=== PATIENT | female | born 1945 | race Caucasian/White ===

== ENCOUNTER 2018-01-14 11:00 | Outpatient (RCR) | payer MEDICARE, SELFPAY | END 2018-01-14 11:01 | disposition home or self-care (01) | LOC: PT 11:00 | PROVIDERS: Family Provider Family Medicine Geriatric Medicine; PCP Family Medicine Geriatric Medicine; Visit Provider Physician Assistant | DX: M25.551 Pain in right hip (principal); S76.311A Strain of muscle, fascia and tendon of the posterior muscle group at thigh level, right thigh, initial encounter | CPT/HCPCS: 97010; 97014; 97110; 97163; G0283 ==

== ENCOUNTER 2020-01-18 11:00 | Outpatient (RCR) | payer MEDICARE, SELFPAY | END 2020-01-18 11:05 | disposition home or self-care (01) | LOC: PT 11:00 | PROVIDERS: PCP Family Medicine Geriatric Medicine; Visit Provider Orthopaedic Surgery | DX: M25.561 Pain in right knee (principal); Z96.651 Presence of right artificial knee joint | CPT/HCPCS: 97010; 97014; 97033; 97035; 97110; 97163; G0283 ==

== ENCOUNTER → 2020-08-21 09:19 | Outpatient (POV) | payer MEDICARE, SELFPAY ==
[2020-08-21 09:24] VITALS: BP 148/64; PULSE 73; RESP 18; TEMP 36.8; O2SAT 98; BMI 27.3
--- NOTE | 2020-08-21 11:42 | HMH.PMCON ---
Assessment and Plan (1) Facet arthropathy, lumbar Status: Acute Category: Medical Code(s): M47.816 - Spondylosis without myelopathy or radiculopathy, lumbar region (2) Degenerative disc disease Status: Acute Category: Medical - Assessment and plan all Dx Assessment and Plan for all problems:: We will set up the patient for medial branch blocks/facet joint injection L3-L4 L4-L5 bilaterally. Given her symptomology I do believe this would benefit her. She may be a neurotomy candidate. She is not on any anticoagulation therapy. We will follow up with her afterwards reassess her symptoms at that time we discussed the diagnostic nature of these injections she understands. She has been instructed to call the office if she has any issues prior to her next appointment. Dr. Wilson has reviewed this note and agrees with this plan of care. This note was dictated using voice recognition software and may contain errors or omissions HPI - Data of Consult Consult date: 08/21/20 Requesting Physician: Shama Christy APRN Primary Care Provider: Celsa Tellez - Consult Narrative Reason for consult: Back pain History of present illness: Ms. Murray is a 75 year old female who presents today for consultation in regards to her low back pain. Patient has had pain for several years. She has had surgery in the past. Patient has tried and failed physical therapy, medications. Patient's pain is very focal in nature she is extremely tender over her lumbar facet joints. She has difficulty with twisting motions. Patient has positive facet loading lumbar spine. Patient rates her pain today a 5 out of 10. Patient has not had any injective therapy. She has failed gabapentin, Cymbalta, tramadol for over 6 weeks. She is interested in injective therapy. CC: Shama Christy APRN [facility] History I have reviewed the patient's past medical history: Yes Medical History: Reports:: Hyperlipidemia, Hypertension Denies:: Cancer, Diabetes Mellitus Type 1, Diabetes Mellitus Type 2, MRSA *Have you ever received a pneumonia vaccine?: Yes *Have you received a flu vaccine this season?: Yes Other Medical History: Reports: Arthritis Laterality Cases: Left: Arthroscopy Knee, Total Knee Replacement Other Surgeries: Yes: Cholecystectomy, Hysterectomy-Total, Tubal Ligation Amputation: No Fractures: No - *Social History Smoking Status: Never smoker Alcohol Intake: never *Occupational Status:: other Housing: house Household Members: other *Travel in the last 8 weeks: None Family Hx:: Unable to obtain Review of Systems - Review of Systems ROS General: no recent weight change, no fever, no sleep disturbances Respiratory: no cough, no shortness of air, no recurring pulmonary infections Cardiovascular/Peripheral Vascular: No chest pain, No palpitations, no edema, no shortness of breath. Gastrointestinal: no new onset incontinence, normal bowel movements reported Genitourinary: no new onset incontinence Musculoskeletal: Back pain Psychiatric: normal mood/ affect Neurological: [denies new onset weakness in extremities], [denies new onset balance issues] Meds Allergies Allergy/AdvReac Type Severity Reaction Status Date / Time No Known Allergies Allergy Unverified 03/25/17 14:09 Objective Vital signs: Temp Pulse Resp BP Pulse Ox 98.3 F 73 18 148/64 H 98 08/21/20 09:24 08/21/20 09:24 08/21/20 09:24 08/21/20 09:24 08/21/20 09:24 Narrative: Physical Exam General: Alert and oriented x3, no acute distress, pleasant and cooperative, [on room air] Lungs: Resps E/U, Symmetrical chest expansion, Eyes: PERRL Musculoskeletal: Flexion and extension of lumbar spine somewhat guarded secondary to pain, deep tendon reflexes normal, strength in upper and lower extremities [5/5], slightly antalgic gait noted Neurological: speech clear, coordinator of placement equal, no gross sensory deficits Opioid Risk Tool - Opio
== END ==
PROVIDERS: PCP Physician Assistant; Visit Provider Clinical Nurse Specialist Family Health
DX: M47.816 Spondylosis without myelopathy or radiculopathy, lumbar region (principal)
CPT/HCPCS: 99202; G0463

== ENCOUNTER 2020-09-01 09:37 | Day surgery (SDC) | payer MEDICARE, SELFPAY ==
[2020-09-01 09:55] VITALS: BP 159/49; PULSE 64; RESP 20; TEMP 36; O2SAT 98; BMI 28.2
[2020-09-01 11:27] VITALS: BP 123/75; PULSE 61; RESP 18; O2SAT 98
[2020-09-01 11:29] VITALS: BP 123/75; PULSE 60; RESP 18; O2SAT 98
[2020-09-01 11:45] VITALS: BP 152/75; PULSE 61; RESP 20; O2SAT 98
--- NOTE | 2020-09-01 12:24 | HMH.PMPROC ---
- Procedure Date: 09/01/20 Time: 12:34 Anesthesiologist:: Rosa Carroll MD Complications:: None Pre-procedure Diagnosis:: Lumbar facet arthropathy Post-procedure Diagnosis:: Same Indications for Procedure:: Patient is a 75-year-old female with lumbar facet arthropathy resulting in significant low back pain. She has had spine surgery in the past. She has tried and failed physical therapy as well as medications. Her pain is localized and very tender over her lower lumbar facet joints. She reports pain with twisting and bending. On exam she had positive facet loading of the lumbar spine. She has not had any previous injection therapy and the plan is for her to undergo today lumbar facet injections of L3-L4 and L4-L5. Procedure Details:: Lumbar medial branch block Informed consent was obtained and the risks and benefits of the procedure was explained to the patient. The back was prepped using ChloraPrep. The skin and subcutaneous tissues were anesthetized using lidocaine. I placed 22-gauge spinal needles into the facet joint/medial branches of L3-L4, L4-L5 bilaterally. Needle placement was confirmed with dye. After this we injected 3 mL bupivacaine 0.25% and Depo-Medrol 13 mg into each facet joint/medial branch of L3-L4, L5 and L5-S1 bilaterally. We used a total of 80 mg Depo-Medrol for all 2 levels bilaterally. The patient tolerated the procedure well with no complications. Plan and Disposition:: Patient was discharged home in stable condition. Plan is to follow-up in 2 weeks for reevaluation.
== END 2020-09-01 11:45 | disposition home or self-care (01) ==
LOC: SC.PAINP 09:40
PROVIDERS: PCP Physician Assistant; Visit Provider Anesthesiology Pain Medicine
DX: M47.816 Spondylosis without myelopathy or radiculopathy, lumbar region (principal); I10 Essential (primary) hypertension; E78.5 Hyperlipidemia, unspecified; M19.90 Unspecified osteoarthritis, unspecified site; K21.9 Gastro-esophageal reflux disease without esophagitis; M85.80 Other specified disorders of bone density and structure, unspecified site; G25.81 Restless legs syndrome; F41.9 Anxiety disorder, unspecified; F32.9 Major depressive disorder, single episode, unspecified; Z85.820 Personal history of malignant melanoma of skin
CPT/HCPCS: 64493; 64494; J1030; Q9966

== ENCOUNTER → 2020-09-25 08:47 | Outpatient (POV) | payer MEDICARE, SELFPAY ==
[2020-09-25 08:58] VITALS: BP 139/83; PULSE 66; RESP 18; O2SAT 97; BMI 28.2
--- NOTE | 2020-09-25 09:13 | HMH.PAINSOAP ---
[facility] Pain Management SOAP Note Subjective:: Patient is a 75-year-old white female who presents today for follow-up. Patient recently underwent medial branch block/facet joint injections at L3-L4 L4-L5. She has been treated for degenerative disc disease lumbar spine with lumbar facet arthropathy and lumbar spondylosis. Patient says that she got approximately 80% relief for a day and a half. Patient says her pain is worse with turning and twisting. She says that leaning over to wash dishes makes her pain severe. The pain does radiate up underneath her shoulder blades. She does have facet loading of her lumbar spine. She would like to proceed with a repeat medial branch block/facet joint injection. She has tried and failed conservative therapies of physical therapy for greater than 6 weeks and continued home stretching. She is also tried anti-inflammatories in the past with little to no relief. She continues to use ice and heat therapies. Review of Systems General: No recent weight changes, no fever, no sleep disturbances Respiratory: No cough, no shortness of air, no recurring pulmonary infections Cardiovascular/peripheral vascular: No chest pain, no palpitations, no edema, no shortness of breath Gastrointestinal: No new onset incontinence, normal bowel movements reported Genitourinary: No new onset incontinence Musculoskeletal: Low back pain worse with turning and twisting at waist, worse with leaning forward to do dishes, pain radiating under shoulder blades Psychiatric: Normal mood/affect Neurological: [Denies weakness in extremities], [denies balance issues] Objective:: Physical exam General: Alert and oriented x3, no acute distress, pleasant and cooperative, [on room air] Lungs: Respirations even and unlabored, symmetrical chest expansion Eyes: PERRL Musculoskeletal: Flexion and extension of [] lumbar spine somewhat guarded secondary to pain, deep tendon reflexes normal, strength in upper and lower extremities [5/5], [abnormal gait noted], positive Kemps test Neurological: Speech clear, exhibits curator equal, no gross sensory deficit Assessment:: Degenerative disc disease lumbar spine with lumbar facet arthropathy and lumbar spondylosis Plan:: We will schedule patient for repeat medial branch blocks/facet joint injections L3-L4 L4-L5 bilaterally. She is not on anticoagulation therapy. This is the patient's second round of diagnostic injections. she and I did discuss that if she continues to get relief with the injections at her next visit, we will proceed with RFA. She understands that the medial branch block/facet joint injections are diagnostic only. She does understand and would like to proceed. She is not on any anticoagulation therapy. She will continue with home stretching and anti-inflammatories as well as ice and heat therapies. Risks and benefits of the procedure have been explained to the patient. Patient would like to proceed with the procedure. Possible side effects of corticosteroids have been discussed with the patient. Patient has been instructed to contact the clinic with any concerns before the next appointment. Dr. Wilson has reviewed this note and agrees with this plan of care. This note was dictated using voice recognition software and make contain errors or omissions. [facility] History I have reviewed the patient's past medical history: Yes Medical History: Reports:: Cancer (melanoma), Hyperlipidemia, Hypertension Denies:: Diabetes Mellitus Type 1, Diabetes Mellitus Type 2, MRSA, Seizures *Have you ever received a pneumonia vaccine?: Yes *Have you received a flu vaccine this season?: Yes Other Medical History: Reports: Arthritis. Denies: Blood Transfusion Reaction Laterality Cases: Left: Arthroscopy Knee Other Surgeries: Yes: Cholecystectomy, Hysterectomy-Total, Tubal Ligation Amputation: No Fractures: No - *Social History Smoking Status: Never smoker Alcohol Intake: never *Occupational Status::
== END ==
PROVIDERS: PCP Physician Assistant; Visit Provider Clinical Nurse Specialist Family Health
DX: M51.36 Other intervertebral disc degeneration, lumbar region (principal); M54.06 Panniculitis affecting regions of neck and back, lumbar region; M47.816 Spondylosis without myelopathy or radiculopathy, lumbar region
CPT/HCPCS: 99212; G0463

== ENCOUNTER 2020-10-06 09:28 | Day surgery (SDC) | payer MEDICARE, SELFPAY ==
[2020-10-06 09:32] VITALS: BP 130/53; PULSE 71; RESP 18; TEMP 36.7; O2SAT 98; BMI 28.2
[2020-10-06 09:54] VITALS: BP 142/53; PULSE 77; RESP 18; O2SAT 95
[2020-10-06 09:56] VITALS: BP 122/54; PULSE 70; RESP 18; O2SAT 99
[2020-10-06 10:19] VITALS: BP 121/53; PULSE 61; RESP 20; O2SAT 98
--- NOTE | 2020-10-06 10:19 | HMH.PMPROC ---
- Procedure Date: 10/06/20 Time: 10:19 Anesthesiologist:: Rosa Carroll MD Complications:: None Pre-procedure Diagnosis:: Degenerative disc disease of the lumbar spine, lumbar spondylosis, lumbar facet arthropathy Post-procedure Diagnosis:: same Indications for Procedure:: Patient is a very pleasant 75-year-old white female who presents today with chronic low back pain related to the above diagnosis. She denies any pain going down her legs at this time. She is trialed and failed conservative treatment including oral pain medication and home stretching program. She has previously undergone a previous diagnostic lumbar facet joint/medial branch block at L3-L4 bilaterally and notes about 80% pain relief for 1-1/2 days. She reports the pain is primarily worse with bending and twisting. The plan for today is for the patient to undergo diagnostic lumbar facet joint/medial branch block injections at L3-L4 and L4-L5 bilaterally #2. Procedure Details:: Lumbar medial branch block Informed consent was obtained and the risks and benefits of the procedure was explained to the patient. The back was prepped using ChloraPrep. The skin and subcutaneous tissues were anesthetized using lidocaine. I placed 22-gauge spinal needles into the facet joint/medial branches of L3-L4, L4-L5 bilaterally. Needle placement was confirmed with dye. After this we injected 3 mL bupivacaine 0.25% and Depo-Medrol 40 mg into each facet joint/medial branch of L3-L4, L4-5 bilaterally. We used a total of 80 mg Depo-Medrol for all 3 levels bilaterally. The patient tolerated the procedure well with no complications. Plan and Disposition:: Follow-up with this patient in 2 weeks and will reevaluate pain symptoms at that time. Should the patient experience significant but only short-term pain relief again we will proceed with therapeutic lumbar RFA injections.
== END 2020-10-06 10:21 | disposition home or self-care (01) ==
PROVIDERS: PCP Physician Assistant; Visit Provider Anesthesiology Pain Medicine
DX: M51.36 Other intervertebral disc degeneration, lumbar region (principal); M54.06 Panniculitis affecting regions of neck and back, lumbar region; M47.816 Spondylosis without myelopathy or radiculopathy, lumbar region; E78.5 Hyperlipidemia, unspecified; I10 Essential (primary) hypertension; M19.90 Unspecified osteoarthritis, unspecified site; Z79.899 Other long term (current) drug therapy
CPT/HCPCS: 64493; 64494; J1030; Q9966

== ENCOUNTER → 2020-10-26 10:50 | Outpatient (POV) | payer MEDICARE, SELFPAY ==
[2020-10-26 11:06] VITALS: BP 134/62; PULSE 70; RESP 18; O2SAT 98; BMI 27.3
--- NOTE | 2020-10-26 13:46 | HMH.PAINSOAP ---
[facility] Pain Management SOAP Note Subjective:: Patient is a 75-year-old white female who presents today for follow-up after a medial branch block/facet joint injection at L3-L4 L4-L5 bilaterally #2 diagnostic. Patient is being treated for degenerative disc disease lumbar spine with lumbar spondylosis and lumbar facet arthropathy. She reports that she got 1 day of relief at 80%. Her pain has returned. With sitting, her pain is a 2 out of 10, with standing and leaning forward or turning and twisting at waist her pain is a 7 or an 8 out of 10. She says that the pain is gradually worsening. She would like to proceed with the RFA. She is not on any anticoagulation therapy. She continues with home stretching and anti-inflammatories. She does say that she has tried physical therapy for greater than 6 weeks in the past with no significant relief. Review of Systems General: No recent weight changes, no fever, no sleep disturbances Respiratory: No cough, no shortness of air, no recurring pulmonary infections Cardiovascular/peripheral vascular: No chest pain, no palpitations, no edema, no shortness of breath Gastrointestinal: No new onset incontinence, normal bowel movements reported Genitourinary: No new onset incontinence Musculoskeletal: Low back pain worse with bending forward and turning twisting waist Psychiatric: Normal mood/affect Neurological: [Denies weakness in extremities], [denies balance issues] Objective:: Physical exam General: Alert and oriented x3, no acute distress, pleasant and cooperative, [on room air] Lungs: Respirations even and unlabored, symmetrical chest expansion Eyes: PERRL Musculoskeletal: Flexion and extension of [] lumbar spine somewhat guarded secondary to pain, deep tendon reflexes normal, strength in upper and lower extremities [5/5], [abnormal gait noted], positive Kemps test Neurological: Speech clear, public area supervisor equal, no gross sensory deficit Assessment:: Degenerative disc disease lumbar spine with lumbar facet arthropathy and lumbar spondylosis Plan:: We will schedule the patient for RFA L4 L4-L5 bilaterally. She is not on any anticoagulation therapy. We will follow up with her afterwards for reevaluation of symptoms. She did get up to 80% relief for a day after her #2 diagnostic medial branch block. She has been instructed to contact clinic if she has any concerns for next morning. Risks and benefits of the procedure have been explained to the patient. Patient would like to proceed with the procedure. Possible side effects of corticosteroids have been discussed with the patient. Patient has been instructed to contact the clinic with any concerns before the next appointment. Dr. Wilson has reviewed this note and agrees with this plan of care. This note was dictated using voice recognition software and make contain errors or omissions. [facility] History I have reviewed the patient's past medical history: Yes Medical History: Reports:: Hyperlipidemia, Hypertension Denies:: Cancer, Diabetes Mellitus Type 1, Diabetes Mellitus Type 2, MRSA, Seizures *Have you ever received a pneumonia vaccine?: Yes *Have you received a flu vaccine this season?: Yes Other Medical History: Reports: Arthritis. Denies: Blood Transfusion Reaction Laterality Cases: Left: Arthroscopy Knee Other Surgeries: Yes: Cardiac Catheterization, Cholecystectomy, Hysterectomy-Total, Tubal Ligation Amputation: No Fractures: No - *Social History Smoking Status: Never smoker Alcohol Intake: never *Occupational Status:: unemployed Housing: house Household Members: other *Travel in the last 8 weeks: None Family Hx:: Unable to obtain
== END ==
PROVIDERS: PCP Physician Assistant; Visit Provider Clinical Nurse Specialist Family Health
DX: M51.36 Other intervertebral disc degeneration, lumbar region (principal); M54.06 Panniculitis affecting regions of neck and back, lumbar region; M47.816 Spondylosis without myelopathy or radiculopathy, lumbar region
CPT/HCPCS: 99212; G0463

== ENCOUNTER 2020-11-03 13:42 | Day surgery (SDC) | payer MEDICARE, SELFPAY ==
[2020-11-03 14:15] VITALS: BP 137/38; PULSE 76; RESP 20; TEMP 36.5; O2SAT 97; BMI 28.2
[2020-11-03 15:01] VITALS: BP 118/52; PULSE 74; RESP 18; O2SAT 99
[2020-11-03 15:02] VITALS: BP 112/48; PULSE 77; RESP 18; O2SAT 99
--- NOTE | 2020-11-03 15:06 | HMH.PMPROC ---
- Procedure Date: 11/03/20 Time: 15:06 Anesthesiologist:: Rosa Carroll MD Complications:: None Pre-procedure Diagnosis:: Degenerative disc disease of the lumbar spine, lumbar facet arthropathy, lumbar spondylosis Post-procedure Diagnosis:: Same Indications for Procedure:: Patient is a very pleasant 75-year-old white female who presents today with chronic low back pain due to the above diagnosis. She has trialed and failed conservative treatment including oral pain medication and home stretching program for greater than 6 weeks. She has previously undergone 2 diagnostic lumbar medial branch block/facet joint injections at L3-L4 and L4-L5 bilaterally. She reports approximately 80% pain relief for 1 day. She is requesting lumbar RFA at these levels for more long-term pain relief. For today is for the patient to undergo therapeutic lumbar RFA under fluoroscopy at L3-L4 and L4-L5 bilaterally. Procedure Details:: Lumbar RFA informed consent was obtained and the risk and benefits of the procedure was explained to the patient. Patient was placed prone on the procedure table. The patient was prepped and draped in sterile fashion. C-arm fluoroscopy was used to view the lumbar spine. The skin and subcutaneous tissues were anesthetized using lidocaine. I placed 20-gauge RF needles into the facet joints of [L4 and L5] levels on the right side. We performed sensory and motor stimulation. there is no motor stimulation at 2 V. We then anesthetized these levels with 4 mL of 0.25% bupivacaine and Depo-Medrol. I used a total of 40 mg Depo-Medrol for both levels. I then burned both levels of L4 and L5 facet joint/medial branches on the right side for 4 minutes at 80?C. The above steps were repeated again for the left side at L4 and L5 medial branches. The patient tolerated the procedure well with no complications. Plan and Disposition:: Follow-up with this patient in 2 weeks. Will reevaluate pain symptoms at that time.
[2020-11-03 15:23] VITALS: BP 127/51; PULSE 68; RESP 20; O2SAT 97
== END 2020-11-03 15:24 | disposition home or self-care (01) ==
LOC: SC.PAINP 13:43
PROVIDERS: PCP Physician Assistant; Visit Provider Anesthesiology Pain Medicine
DX: M51.36 Other intervertebral disc degeneration, lumbar region (principal); M47.816 Spondylosis without myelopathy or radiculopathy, lumbar region; M54.06 Panniculitis affecting regions of neck and back, lumbar region; I10 Essential (primary) hypertension; E78.5 Hyperlipidemia, unspecified; M19.90 Unspecified osteoarthritis, unspecified site; M81.0 Age-related osteoporosis without current pathological fracture; K21.9 Gastro-esophageal reflux disease without esophagitis; G25.81 Restless legs syndrome; Z87.19 Personal history of other diseases of the digestive system; Z79.899 Other long term (current) drug therapy
CPT/HCPCS: 64635; 64636; J1030

== ENCOUNTER → 2020-12-18 10:55 | Outpatient (POV) | payer MEDICARE, SELFPAY ==
--- NOTE | 2020-12-18 11:15 | HMH.PAINSOAP ---
[facility] Pain Management SOAP Note Subjective:: Patient is a 75-year-old white female who presents today for follow-up after RFA at L3-L4 L4-L5 bilaterally. She has been treated for degenerative disc disease lumbar spine with lumbar facet arthropathy and lumbar spondylosis. Patient got only 1 week of relief. She says that she is having pain that is worse with standing and walking. She also has pain when washing dishes. She has pain in her bilateral low back with radiation into bilateral buttock. Pain does not radiate into her lower extremities. Patient says that she is also tender to her mid back area. She says that she got short-term relief with the medial branch block/facet joint injections, however, not significant enough to repeat the injections or the RFA. Her RFA was performed on 11/03/2020. Patient says the pain is continuing. She has not had an epidural steroid injection. She does rate her pain a 8 out of 10 today. She continues with ice and heat therapies as well as capsaicin cream. Review of Systems General: No recent weight changes, no fever, no sleep disturbances Respiratory: No cough, no shortness of air, no recurring pulmonary infections Cardiovascular/peripheral vascular: No chest pain, no palpitations, no edema, no shortness of breath Gastrointestinal: No new onset incontinence, normal bowel movements reported Genitourinary: No new onset incontinence Musculoskeletal: Low back pain worse with standing, walking, and washing dishes Psychiatric: [Normal mood/affect] Neurological: [Denies weakness in extremities], [denies balance issues] Objective:: Physical exam General: Alert and oriented x3, no acute distress, pleasant and cooperative, [on room air] Lungs: Respirations even and unlabored, symmetrical chest expansion Eyes: PERRL Musculoskeletal: Flexion and extension of lumbar [spine] somewhat guarded secondary to pain, strength in upper and lower extremities [5/5], [antalgic gait noted] Neurological: Speech clear, [executive pastry chef equal], no gross sensory deficit Assessment:: Degenerative disc disease lumbar spine with lumbar radiculopathy symptoms Plan:: Patient did not get any significant relief with the medial branch block or RFA. She would like to proceed with a lumbar epidural steroid injection. She is not on any anticoagulation therapy. Also order her compounding cream to apply topically to the area for relief in between injective therapy. She will also apply the cream to her bilateral knees and left shoulder. We will see the patient back in the clinic after injection for reevaluation of symptoms. She will continue with home stretching. Possible side effects of corticosteroids have been discussed with the patient. Risks and benefits of the procedure have been explained to the patient. Patient would like to proceed with the procedure. Patient has been instructed to contact the clinic with any concerns before the next appointment. Dr. Wilson has reviewed this note and agrees with this plan of care. This note was dictated using voice recognition software and make contain errors or omissions. [facility] History I have reviewed the patient's past medical history: Yes Medical History: Reports:: Hyperlipidemia, Hypertension Denies:: Cancer, Diabetes Mellitus Type 1, Diabetes Mellitus Type 2, MRSA, Seizures *Have you ever received a pneumonia vaccine?: No *Have you received a flu vaccine this season?: No Other Medical History: Reports: Arthritis. Denies: Blood Transfusion Reaction Laterality Cases: Left: Arthroscopy Knee Other Surgeries: Yes: Cardiac Catheterization, Cholecystectomy, Hysterectomy-Total, Tubal Ligation Amputation: No Fractures: No - *Social History Smoking Status: Never smoker Alcohol Intake: never *Occupational Status:: retired Housing: house Household Members: other *Travel in the last 8 weeks: None Family Hx:: Unable to obtain
[2020-12-18 11:20] VITALS: BP 147/70; PULSE 72; RESP 18; O2SAT 98; BMI 29.0
== END ==
PROVIDERS: Visit Provider Clinical Nurse Specialist Family Health
DX: M51.16 Intervertebral disc disorders with radiculopathy, lumbar region (principal)
CPT/HCPCS: 99212; G0463

== ENCOUNTER 2020-12-29 09:38 | Day surgery (SDC) | payer MEDICARE, SELFPAY ==
[2020-12-29 09:50] VITALS: BP 154/64; PULSE 70; RESP 18; TEMP 36.8; O2SAT 98; BMI 29.0
--- NOTE | 2020-12-29 10:15 | HMH.PMPROC ---
- Procedure Date: 12/29/20 Time: 10:15 Anesthesiologist:: Aryan Wilson MD Complications:: None Pre-procedure Diagnosis:: Degenerative disc disease of lumbar spine with lumbar radiculopathy symptoms. Postlaminectomy syndrome lumbar spine Post-procedure Diagnosis:: Same Indications for Procedure:: Patient is a pleasant 75-year-old white female who we are treating for low back pain with lumbar radiculopathy symptoms. She did have RF ablation to the facet joints of L3-L4 and L4-L5. She did not get long-term relief. This helped for approximately a week. Will do lumbar epidural steroid injection today to see if this helps with some of her pain symptoms. Procedure Details:: Informed consent was obtained and the risk and benefits of the procedure was explained to the patient. The patient was taken to the procedure room. The patient was placed prone on the procedure table. The patient was prepped and draped in sterile fashion. C-arm fluoroscopy was used to view the lumbar spine. Skin and subcutaneous tissues were anesthetized using lidocaine. I placed an 18-gauge epidural needle and advanced into the L4-L5 interspace using fluoroscopic guidance and [id number] to air. After confirmation of needle placement in the epidural space with dye I injected 2 mL of lidocaine 1.5% with Depo-Medrol 80 mg. Patient tolerated the procedure well with no complications. Plan and Disposition:: We will follow-up with her in 2 weeks. Will reevaluate symptoms at that time. If this does not give her long-lasting relief she may be a candidate for intrathecal therapy.
[2020-12-29 10:18] VITALS: BP 126/57; PULSE 69; RESP 18; O2SAT 97
[2020-12-29 10:20] VITALS: BP 122/60; PULSE 66; RESP 18; O2SAT 96
[2020-12-29 10:34] VITALS: BP 141/70; PULSE 70; RESP 20; O2SAT 97
== END 2020-12-29 10:35 | disposition home or self-care (01) ==
LOC: SC.PAINP 09:40
PROVIDERS: PCP Physician Assistant; Visit Provider Anesthesiology
DX: M51.16 Intervertebral disc disorders with radiculopathy, lumbar region (principal); M96.1 Postlaminectomy syndrome, not elsewhere classified
CPT/HCPCS: 62323; J1040; Q9966

== ENCOUNTER → 2021-05-26 10:59 | Outpatient (CLI) | payer MEDICARE, SELFPAY | PROVIDERS: Visit Provider Nurse Practitioner | DX: U07.1 COVID-19 (principal) | CPT/HCPCS: C9803; U0003; U0005 ==